=== PATIENT | male | born 1945 | race Caucasian/White ===

== ENCOUNTER 2023-01-10 14:07 | Emergency (ER) | payer MEDICARE ==
[2023-01-10] MEDS ORDERED: Lidocaine 1% (PF) 30 ML VIAL ONE (14:38)
[2023-01-10] MEDS ORDERED: Boostrix 0.5 ML (Tdap) VIAL (>/=7 yrs of age) ONE (15:20)
[2023-01-10] MEDS ORDERED: Bacitracin 1 PK ONE (15:20)
== END 2023-01-10 15:41 | disposition home or self-care (01) ==
LOC: NAV ERS 14:07
DX: S61.313A Laceration without foreign body of left middle finger with damage to nail, initial encounter (principal); I10 Essential (primary) hypertension; Z87.891 Personal history of nicotine dependence; Z23 Encounter for immunization; W23.0XXA Caught, crushed, jammed, or pinched between moving objects, initial encounter
CPT/HCPCS: 12001; 90471; 90715; J2001

== ENCOUNTER 2025-09-07 09:16 | Emergency (ER) | payer MEDICARE | END 2025-09-07 10:31 | disposition home or self-care (01) | LOC: NAV ERS 09:16 | DX: J20.8 Acute bronchitis due to other specified organisms (principal); J32.9 Chronic sinusitis, unspecified; B97.89 Other viral agents as the cause of diseases classified elsewhere; I10 Essential (primary) hypertension; E78.5 Hyperlipidemia, unspecified; Z79.899 Other long term (current) drug therapy; Z87.891 Personal history of nicotine dependence | CPT/HCPCS: 71046; 87428; 96372; J1010 ==